=== PATIENT | female | born 1970 | race Caucasian/White ===

== ENCOUNTER 2016-05-05 13:43 | Emergency (ER) | payer OTHER ==
[2016-05-05 14:10] VITALS: BP 111/58; PULSE 62; RESP 18; TEMP 99.3; O2SAT 96
--- NOTE | 2016-05-05 14:25 | UCPHY ---
[id number]/16/17 14:19 HPI/ROS: HPI: 45-year-old female presents to urgent care with chief concern nasal congestion, cough. Symptoms onset suddenly 3 nights ago associated with myalgias. Reports subjective low-grade temp. Denies dizziness, dysphagia, shortness of breath, chest pain, abdominal pain, nausea, vomiting, diarrhea, rash. No aggravating or alleviating factors. Did not receive a flu shot this year. Has no history of asthma or pneumonia. Has no primary care provider ROS:10 point review of systems is negative other than as stated in HPI (Patience Brown) Physical Exam: Vital signs stable, reviewed by me General: Awake, alert, calm, cooperative. No acute distress. Head: Atraumatic. EENT: Conjuctiva mildly injected. TMs intact, without redness or bulging. Nasal mucosa is erythematous with moderate clear discharge. Pharynx mildly erythematous. Uvula midline. No tonsillar abscess or exudates. No frontal or maxillary tenderness to percussion. Respiratory: Breathing unlabored. Lungs clear to auscultation bilaterally. No accessory muscle use. CV: Heart rate regular. S1-S2 present. No murmur. GI: Abdomen soft, nontender. Bowel sounds positive x4 quadrants. : Deferred Skin: Warm, dry, intact. No rashes present. Capillary refill brisk. Musculoskeletal: Full ROM all extremities. Neuro: Alert oriented x3. Strength equal in all 4 extremities. (Patience Brown) Constitutional: Initial Vital Signs Temperature (C) 37.4 C 05/05/16 14:07 Heart Rate 62 05/05/16 14:07 Respiratory Rate 18 05/05/16 14:07 Blood Pressure 111/58 L 05/05/16 14:07 O2 Sat (%) 96 05/05/16 14:07 O2 Delivery Mode Room Air Allergies/Adverse Reactions: No Known Allergies Allergy (Unverified 05/05/16 14:05) Home Medications: Medication Instructions Recorded Bcp 05/05/16 Oseltamivir Phosphate [Tamiflu 75 75 mg PO BID #10 cap 05/05/16 mg (*)] Medical Decision Making ED Course/Re-evaluation: Urgent Care PA supervision Physician documentation: The patient was evaluated and managed by the physician insurance sales assistant. My co- signature indicates that I have reviewed this chart and I agree with the findings and plan of care as documented. I am the secondary supervising physician. (Fabio Lilly) Differential Diagnosis: Differential includes but is not limited to influenza, bronchitis, sinusitis, pneumonia, other viral URI (Patience Brown) Departure - Departure Disposition: Home, Routine, Self-Care Clinical Impression: Influenza A Condition: Fair Instructions: Influenza (ED) Additional Instructions: Plan: Tamiflu as directed for 5 days Drink plenty of fluids. Rest. Zinc, vitamin-C You may use over the counter cough and cold medicine for symptom relief. You may use Tylenol or Ibuprofen for fever and pain control. Use saline spray or saline irrigation to each nostril twice daily-morning and evening. Return to Urgent Care or ER if you develop chest pain, difficulty breathing, or difficulty swallowing. Follow up as directed with primary care next week--tell the office you are an "ER follow up appointment when you call. Return here promptly for worsening symptoms such as facial/tooth pain, chest pain, shortness of breath, unremitting fever, nausea, vomiting, difficulty swallowing. Referrals: NONE *PRIMARY CARE P,. [Primary Care Provider] - As per Instructions Ruth Ann Rushing, [employer] [Certified Nurse Practioner] - As per Instructions Stand Alone Forms: Work Excuse Prescriptions: Oseltamivir Phosphate [Tamiflu 75 mg (*)] 75 mg PO BID #10 cap - PQRS PQRS Measurement: Not applicable (Patience Brown)
== END 2016-05-05 14:43 | disposition home or self-care (01) ==
LOC: CED 13:43
DX: J09.X2 Influenza due to identified novel influenza A virus with other respiratory manifestations (principal)
CPT/HCPCS: 87400-PO; G0463-PO